=== PATIENT | female | born 1945 | race American Indian/Alaskan Native ===

== ENCOUNTER 2017-02-05 14:11 | Day surgery (SDC) | payer MEDICARE, OTHER ==
[2017-02-05] MEDS ORDERED: NACL 0.9% 1000 ML 1,000 ML ONE (14:19)
[2017-02-05] MEDS ORDERED: NACL BACTERIOSTATIC INFILTRATI ONE (14:23)
--- NOTE | 2017-02-05 14:38 | Anesthesia Consultation ---
Anesthesia Consult and Med Hx Date of service: 02/05/17 - Airway Anesthetic Teeth Evaluation: Good ROM Head & Neck: Adequate Mental/Hyoid Distance: Adequate Mallampati Class: Class II Intubation Access Assessment: Good - Pulmonary Exam CTA: Yes - Pre-Operative Health Status ASA Pre-Surgery Classification: ASA2 Proposed Anesthetic Plan: General - Pulmonary Hx Sleep Apnea: Yes (high risk, not on CPAP) - Cardiovascular System Hx Hypertension: Yes (no meds)
--- NOTE | 2017-02-05 14:38 | Anesthesia Day of Surgery ---
Anesthesia Day of Surgery - Day of Surgery Patient Examined: Yes Patient H&P Reviewed: Yes Patient is NPO: Yes
[2017-02-05] MEDS ORDERED: NORCO 5/325 PO PRN (14:39)
[2017-02-05] MEDS ORDERED: ZOFRAN IV PRN (14:39)
[2017-02-05] MEDS ORDERED: NACL 0.9% 1000 ML 1,000 ML IV SCH (14:55)
[2017-02-05] MEDS ORDERED: LACTATED RINGERS 1,000 ML IV SCH (15:00)
[2017-02-05] MEDS ORDERED: PEPCID IV NR (15:00)
[2017-02-05] MEDS ORDERED: ANCEF/STERILE WATER 2 GM/20 ML IV NR (15:05)
[2017-02-05] MEDS ORDERED: XYLOCAINE MPF 2% ONE (15:22)
[2017-02-05] MEDS ORDERED: DIPRIVAN 10 MG/ML IV ONE (15:22)
[2017-02-05] MEDS ORDERED: DILAUDID ONE (15:24)
[2017-02-05] MEDS ORDERED: ANCEF/STERILE WATER 2 GM/20 ML IV ONE (15:38)
[2017-02-05] MEDS ORDERED: NACL 0.9% IR ONE (15:53)
[2017-02-05] MEDS ORDERED: ZOFRAN ONE (15:58)
--- NOTE | 2017-02-05 17:08 | Operative Report ---
Operative Report Operative Report: Date of procedure: 02/05/2017 Pre-operative diagnosis: Left breast hematoma Post-operative diagnosis: Same Procedure name(s): Evacuation of left breast hematoma Surgeon: Brenda Reza M.D. Anesthesia: Gen. Findings: Left breast hematoma around the 3 o'clock position with evacuation of 200 mL of blood Complications: None Drains: None Disposition: PACU in good condition Indications for operative procedure: This is a 71-year-old lady with recent abnormal left mammogram of suspicious microcalcifications. Patient underwent stereotactic breast biopsy today with significant development of left breast hematoma. Recommendations were for evacuation. Patient was consented for the above procedure. Procedure in Detail: The patient was taken to the operating room and was laid supine. General anesthesia was administered. The left breast was prepped and draped in normal sterile operative fashion. The ultrasound was used to evaluate the area of known hematoma around the 3:00 position of the NAC. A 3:00 periarerola incision was made. The left breast hematoma was evacuated of 200 cc. The area was evaluated further with ultrasound and no further hematoma was noted. The area was then irragated and suction. Hemostasis was noted. The skin was approximated and closed using an interrupted 3-0 Vciryl and running 4-0 Monocryl and skin affix. She was awaken from anesthesia and transported to PACU in good condition.
[2017-02-05] MEDS: DILAUDID IV PRN ×2 (17:20→17:30)
--- NOTE | 2017-02-05 17:31 | Post Anesthesia Evaluation ---
- Post Anesthesia Evaluation Patient Participated: Yes Airway Patent: Yes Stable Respiratory Function: Yes Temp > 96.8F: Yes Pain Manageable: Yes Adequeate Hydration: Yes Anesthesia Complications: No Block Receding Appropriately: Not Applicable
[2017-02-05 17:59] VITALS: BP 124/76
== END 2017-02-05 18:30 | disposition home or self-care (01) ==
LOC: OR 14:11
PROVIDERS: ATTEND Surgery
DX: N64.89 Other specified disorders of breast (principal); I10 Essential (primary) hypertension
CPT/HCPCS: 10140; J1170; J2405; J2704; J7030; J0690

== ENCOUNTER 2017-02-05 14:58 | Outpatient (CLI) | payer MEDICARE | END 2017-02-05 14:59 | disposition home or self-care (01) | LOC: LABHHL 14:58 | PROVIDERS: ATTEND Surgery | DX: R92.0 Mammographic microcalcification found on diagnostic imaging of breast (principal) | CPT/HCPCS: 88305; 88361 ==

== ENCOUNTER 2017-02-13 12:14 | Outpatient (CLI) | payer MEDICARE ==
--- NOTE | 2017-02-19 13:55 | Magnetic Resonance Report ---
BILATERAL BREAST MRI WITHOUT AND WITH CONTRAST: 02/13/17 12:14:00 CLINICAL: Newly diagnosed left breast cancer. 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 ER/IA positive. The patient bled after the procedure and a large hematoma was surgically evacuated on the same day as the stereotactic procedure. COMPARISON:12/24/16 screening mammogram and 01/26/17 and 02/05/17 left mammograms. TECHNIQUE: Axial 1.0-mm T1 without, axial high resolution 2.0-mm T2 and axial 1.0-mm dynamic Vibrant high-resolution postcontrast T1 fat saturation sequences on a 1.5 Yana magnet. The examination was performed with an 8 channel dedicated [place] breast coil. Post processing with CAD and subtraction was performed on an [employer] workstation. 20 cc of Multihance was injected for the contrast portion of the exam. Consent was obtained prior to the administration of the contrast. FINDINGS: Right: Mild background parenchymal enhancement. No mass or suspicious enhancement of the right breast. A benign intramammary lymph node in the upper-outer quadrant 4.4 cm from the nipple measures 5.7 x 5.6 x 2.9 mm. No suspicious right axillary or right internal mammary lymph nodes. Left: The left breast is greatly enlarged compared to the right and there is moderate edema and skin thickening of the breast. A slightly lateral retroareolar seroma measures approximately 3.7 x 2.6 x 5.0 cm. A more posterior and lateral septated seroma measures 3.3 x 3.0 x 1.8 cm. It is centered approximately 10 cm from the nipple. No mass or suspicious enhancement of the left breast. A single relatively central surgical clip is identified and correlates with a remote biopsy. The two clips that were placed at the time of the recent stereotactic biopsy are not identified. No suspicious left axillary or left internal mammary lymph nodes. IMPRESSION: Newly diagnosed DCIS at two sites in the left breast but no MRI findings suspicious for residual or additional tumor. Post-operative seromas of the left breast. Negative right breast. No suspicious lymph nodes. RIGHT BI-RADS 1 -- Negative LEFT BI-RADS 6 -- Known Cancer
== END 2017-02-13 12:15 | disposition home or self-care (01) ==
LOC: SPVIMAG 12:14
PROVIDERS: ATTEND Surgery
DX: C50.912 Malignant neoplasm of unspecified site of left female breast (principal)
CPT/HCPCS: 0159T; A9577; C8908; 77059

== ENCOUNTER 2017-02-17 13:34 | Outpatient (CLI) | payer MEDICARE ==
--- NOTE | 2017-02-17 14:27 | Mammography Report ---
LEFT DIGITAL DIAGNOSTIC MAMMOGRAM : 02/17/17 13:34:00 CLINICAL: Status post recent stereotactic biopsy with development of a large post biopsy hematoma that had to be surgically evacuated. The pathology revealed high-grade DCIS. COMPARISON:02/05/17 FINDINGS: The most recently placed biopsy clips with a stereotactic biopsy are no longer identified. An upper outer clip approximately 7 cm from the nipple correlates with a remote biopsy.The previously described 5 cm hematoma is no longer identified. IMPRESSION: No remaining localizer clips from the recent two site stereotactic biopsy.Minimal residual hematoma/seroma. BI-RADS CATEGORY: 6--Known Cancer ACR BI-RADS MAMMOGRAPHIC CODES: 0 = Needs additional imaging evaluation; 1 = Negative; 2 = Benign; 3 = Probably benign; 4 = Suspicious; 5 = Malignant; 6 = Known biopsy-proven malignancy COMMENT: 1. Dense breast tissue, i.e., adenosis, fibrocystic changes, etc., may obscure an underlying neoplasm. 2. Approximately 10% of cancers are not detected with mammography. 3. A negative mammography report should not delay biopsy if a clinically suspicious mass is present. COMMENT: Patient follow-up letters are generated by our [employer] application.
== END 2017-02-17 13:35 | disposition home or self-care (01) ==
LOC: SPVWC 13:34
PROVIDERS: ATTEND Surgery
DX: C50.912 Malignant neoplasm of unspecified site of left female breast (principal)
CPT/HCPCS: G0206-LT

== ENCOUNTER 2017-04-03 07:05 | Day surgery (SDC) | payer MEDICARE ==
[2017-04-03] MEDS ORDERED: XYLOCAINE 1% 20 mL ONE ×2 (07:33→09:14)
--- NOTE | 2017-04-03 07:37 | Anesthesia Day of Surgery ---
Anesthesia Day of Surgery - Day of Surgery Patient Examined: Yes Patient H&P Reviewed: Yes Patient is NPO: Yes
--- NOTE | 2017-04-03 07:39 | Anesthesia Consultation ---
Anesthesia Consult and Med Hx - Airway Anesthetic Teeth Evaluation: Caps ROM Head & Neck: Adequate Mental/Hyoid Distance: Adequate Mallampati Class: Class II Intubation Access Assessment: Probably Good - Pulmonary Exam CTA: Yes - Cardiac Exam Cardiac Exam: RRR - Pre-Operative Health Status ASA Pre-Surgery Classification: ASA2 Proposed Anesthetic Plan: General - Pulmonary Hx Smoking: No Hx Sleep Apnea: No - Cardiovascular System Hx Hypertension: Yes (DX: 5 YRS AGO, TAKEN OFF MEDS BY PCP 1 YR AGO) - Central Nervous System Hx Psychiatric Problems: No - Other Systems Hx Cancer: No Hx Obesity: Yes (BMI 33.5) - Additional Comments Anesthesia Medical History Comments: NPO after MN. No prior anesthesia problems. No meds for HTN at the present.
[2017-04-03] MEDS ORDERED: NACL BACTERIOSTATIC INFILTRATI ONE (07:49)
[2017-04-03] MEDS ORDERED: PEPCID PO NR (08:00)
[2017-04-03] MEDS ORDERED: VERSED IV NR (08:00)
[2017-04-03] MEDS ORDERED: NACL 0.9% 1000 ML 1,000 ML IV SCH (08:00)
[2017-04-03] MEDS ORDERED: DIPRIVAN 10 MG/ML IV ONE (09:10)
[2017-04-03] MEDS ORDERED: XYLOCAINE MPF 2% ONE (09:10)
[2017-04-03] MEDS ORDERED: DILAUDID ONE (09:10)
[2017-04-03] MEDS ORDERED: MARCAINE 0.25% INFILTRATI ONE ×3 (09:14→11:57)
--- NOTE | 2017-04-03 09:35 | Short Stay Summary ---
Short Stay Documentation Date of service: 04/03/17 - History H&P: obtained from office - Allergies and Medications Current Medications: Allergies NKDA Adverse Reaction (Uncoded 02/05/17 14:48) Unknown Home Medications Medication Instructions Recorded Confirmed Last Taken Type HYDROcodone/APAP 5-325 [Alamo 1 each PO Q6HR PRN #30 tablet 04/03/17 Unknown Rx 5/325] Active Medications Cefazolin Sodium (Ancef/Sterile Water 2 Gm/20 Ml) 2 gm IV PREOP NR Famotidine (Pepcid) 20 mg PO PREOP NR Stop: 04/03/17 15:00 Last Admin: 04/03/17 08:11 Dose: 20 mg Sodium Chloride (Nacl 0.9% 1000 Ml) 1,000 mls @ 75 mls/hr IV DIRECT CROW Midazolam HCl (Versed) 2 mg IV PREOP NR Stop: 04/03/17 23:59 - Brief post op/procedure progress note Date of procedure: 04/03/17 Pre-op diagnosis: Left breast cancer of the upper outer quadrant, DCIS Post-op diagnosis: same Procedure: Complex left needle localization partial mastectomy Anesthesia: GETA Surgeon: IVAN HANDY Estimated blood loss: minimal Pathology: list (left partial mastectomy) Specimen disposition: to lab (left needle localization partial mastectomy) Condition: stable - Disposition Condition at discharge: Good Disposition: DISCHARGED TO HOME OR SELFCARE Short Stay Discharge Plan Activity: other (no heavy lifting) Diet: regular Wound: other (keep incision clean and dry and may shower in 24 hours; no baths, pools or lakes; do not rub or scrub incision) Follow up with: FARZANEH HAAS MD [Primary Care Provider] - 7 Days IVAN HANDY MD [Staff Physician] - 7 Days Prescriptions: HYDROcodone/APAP 5-325 [Alamo 5/325] 1 each PO Q6HR PRN #30 tablet PRN Reason: Pain
[2017-04-03] MEDS ORDERED: ANCEF/STERILE WATER 2 GM/20 ML IV NR (10:00)
[2017-04-03] MEDS ORDERED: DECADRON ONE (10:29)
[2017-04-03] MEDS ORDERED: ZOFRAN ONE (10:29)
[2017-04-03] MEDS ORDERED: NACL 0.9% 1000 ML 1,000 ML ONE (11:57)
[2017-04-03] MEDS ORDERED: XYLOCAINE 1% 20 mL INFILTRATI ONE ×2 (11:57)
[2017-04-03] MEDS ORDERED: WATER FOR IRRIG STERILE IR ONE (12:07)
--- NOTE | 2017-04-03 12:30 | Operative Report ---
Operative Report Operative Report: Date of procedure: 04/03/2017 Preoperative diagnosis: Left breast cancer of the upper outer quadrant, DCIS Postoperative diagnosis: Same Procedure: Left complex needle localization partial mastectomy Surgeon: Brenda Reza M.D. Anesthesia: Gen. Findings: Wires present within radiograph specimen as well as macrocalcifications identified Complications: None Estimated blood loss: 10 mL Disposition: PACU in good condition Indications for operative procedure: This is a 71 year old lady with stage 0 left breast cancer, [id number] of the upper outer quadrant with recommendations for needle localization partial mastectomy. She wished to proceed with the above procedure. Procedure in detail: Radiology place 2 wires that localized area of concern. The patient was taken to the operating room and was laid supine. Gen. anesthesia was administered. Left breast was prepped and draped in the normal sterile operative fashion. The wires were identified. Timeout was performed. A left lateral radial incision was made with a 15 blade knife with dissection taken down to the subcutaneous tissues. First began with removal of the wires from the skin superiorly. Then proceeded with raising of the superior flap taken down posterior to the pectoralis muscle followed by raising of the lateral flap, inferior flap and medial flap. The area of concern was appropriately removed with the aid of the Bovie cautery without incident. Additional cephalad, caudal and medial margins were taken as well and were appropriately marked. Specimen with area of concern was noted on radiograph specimen. Hemostasis was then obtained with the Bovie cautery. Breast cavity was irrigated and suctioned. Hemostasis was noted. Oncoplastic surgery then proceeded with mobilization and approximation of the breast tissue posteriorly to more anteriorly. The tissue was appropriately brought together with interrupted 3-0 Vicryl and the skin was brought together and closed using a running 4-0 Monocryl and skin affix. She tolerated surgery very well and was awakened from anesthesia without any complications and transported to PACU in good condition.
--- NOTE | 2017-04-03 13:05 | Mammography Report ---
Left breast needle localization: The patient presents with a history of DCIS however there is no localizing marker in the targeted calcifications were removed. 2 wires are placed based on prior mammography demonstrating positioning of the calcifications. A lateral approach was utilized and the approximate location of the calcifications were made based on a prior marker and the nipple position. The skin was cleansed and 1% lidocaine used for local anesthesia. Using mammographic grid technique 2 needles were placed from the lateral side bracketing the area of concern. The needle positioning was confirmed with mammography. Wires were then placed with removal of the needles and additional mammographic confirmation of position. No patient complications were encountered.
--- NOTE | 2017-04-03 13:06 | Mammography Report ---
Operative specimen mammogram: A single tissue specimen is submitted that includes the 2 localizing wires and the included breast tissue. Single calcification is present within the tissue. No other information.
[2017-04-03 13:44] VITALS: BP 112/74
--- NOTE | 2017-04-03 13:45 | Post Anesthesia Evaluation ---
- Post Anesthesia Evaluation Patient Participated: Yes Airway Patent: Yes Stable Respiratory Function: Yes Nausea/Vomiting: No Temp > 96.8F: Yes Pain Manageable: Yes Adequeate Hydration: Yes Anesthesia Complications: No Block Receding Appropriately: Not Applicable Patient on Ventilator: No
--- NOTE | 2017-04-03 15:15 | Procedure Note ---
Date of procedure: 04/03/17 Pre-op diagnosis: lt breast lesion Post-op diagnosis: same Procedure: needle loc Findings: n/a Anesthesia: local Surgeon: JEMAL RAND Estimated blood loss: none Pathology: none Condition: stable (surgery)
== END 2017-04-03 07:06 | disposition home or self-care (01) ==
LOC: OR 07:05
PROVIDERS: ATTEND Surgery
DX: D24.2 Benign neoplasm of left breast (principal); N60.92 Unspecified benign mammary dysplasia of left breast; I10 Essential (primary) hypertension; E11.9 Type 2 diabetes mellitus without complications; K21.9 Gastro-esophageal reflux disease without esophagitis; E66.9 Obesity, unspecified; Z68.33 Body mass index [BMI] 33.0-33.9, adult; Z98.890 Other specified postprocedural states; Z79.899 Other long term (current) drug therapy
CPT/HCPCS: 19281; 19301; 76098; 88307; J0690; J1100; J1170; J2250; J2405; J2704; J7030; 88305

== ENCOUNTER 2017-06-24 08:41 | Outpatient (CLI) | payer MEDICARE ==
--- NOTE | 2017-06-24 09:30 | Mammography Report ---
BONE DENSITY STUDY: DEFINITIONS: BMD = Bone Mineral Density T-score = BMD related to mean peak bone mass of young adult (mean expressed in Standard Deviation) Z-score = Age matched BMD expressed in SD World Health Organization (WHO) Diagnostic Criteria Normal T-score > -1 SD Osteopenia T-score between -1 and -2.4 SD Osteoporosis T-score -2.5 SD or below FINDINGS: The weighted average BMD of lumbar spine L1-L4 is 1.191 with a T-score of 0.4. The weighted average BMD of hip is 0.986 with a T-score of -0.3. IMPRESSION: The patient's T-score is diagnostic for normal bone density and low relative risk for fracture. NOTE: BMD is not the only risk factor for fracture; also consider factors such as the patient's age, risk of falling, previous osteoporotic fracture, family history of osteoporotic fractures, current smoker, and low body weight. Drummond's triangle is a region of interest in femur, predominantly of trabecular bone. It is not a true anatomic site, and ISCD does not recommend its use clinically.
== END 2017-06-24 08:42 | disposition home or self-care (01) ==
LOC: SPVWC 08:41
PROVIDERS: ATTEND Internal Medicine Hematology & Oncology
DX: Z13.820 Encounter for screening for osteoporosis (principal); D05.12 Intraductal carcinoma in situ of left breast; I10 Essential (primary) hypertension
CPT/HCPCS: 77080

== ENCOUNTER 2019-07-20 09:14 | Outpatient (CLI) | payer MEDICARE ==
--- NOTE | 2019-07-20 16:12 | Mammography Report ---
BONE DEXA CLINICAL: Postmenopausal and history of breast cancer on anastrozole. COMPARISON: 06/24/2017 TECHNIQUE: 2 site bone DEXA performed on an Hologic scanner. FINDINGS: The average BMD of the lumbar spine L1-L4 is 1.199g/cm squared with a T score of +0.4 and a Z score o f +2.9. This compares to 1.191g/cm squared on the last exam and represents a +0.6 % change from the [ previous baseline]. The average BMD of the left hip is 1.091 g/cm squared with a T score of +0.4and a Z score of +1.6. Th is compares to 0.986 g/cm squared on the last exam and represents a +10.6 % change from the [previous baseline]. IMPRESSION: 1. WHO classification: Normal with average fracture risk based on both spine and left hip measurement s. 2. A modest improvement in spine BMD and a more pronounced improvement in left hip BMD compared to th e last exam. RECOMMENDATION: Clinical correlation and routine screening. Definitions: BMD equal bone mineral density T score = BMD related to peak bone mass of young adult ([place] expressed an standard deviation) Z score = age-matched BMD expressed in SD World health organization (WHO) diagnostic criteria Normal T score greater than equal to 1 standard deviation Osteopenia T score between -1 and -2.4 standard deviation Osteoporosis T score -2.5 standard deviation or below. Note: BMD is not the only risk factor for fracture; also consider factors such as the patient's age, risk of falling, previous osteoporotic fracture, family history of osteoporotic fractures, current sm oker and low body weight. Z scores are not calculated if greater than 80 years of age. Signer Name: Cosme Rogers MD Signed: 07/20/2019 4:07 PM Workstation Name: [id number]
== END 2019-07-20 09:15 | disposition home or self-care (01) ==
LOC: SPVWC 09:14
PROVIDERS: ATTEND Internal Medicine Hematology & Oncology
DX: D05.12 Intraductal carcinoma in situ of left breast (principal); Z79.811 Long term (current) use of aromatase inhibitors; Z78.0 Asymptomatic menopausal state
CPT/HCPCS: 77080

== ENCOUNTER 2021-01-21 08:39 | Outpatient (CLI) | payer MEDICARE ==
--- NOTE | 2021-01-21 10:43 | Mammography Report ---
DIGITAL SCREENING MAMMOGRAM WITH CAD, 01/21/2021 CLINICAL INFORMATION / INDICATION: Routine screening mammography. TECHNIQUE: Digital bilateral 2D mammography was obtained in the craniocaudal and mediolateral obliqu e projections. This examination was interpreted with the benefit of Computer-Aided Detection analysis . COMPARISON: 01/19/2020, 01/06/2019 FINDINGS: Breast Density: There are scattered areas of fibroglandular density. No dominant mass, suspicious calcifications, or architectural distortion in either breast. Postlumpectomy and radiation change noted in the left breast. No significant interval change. IMPRESSION: No mammographic evidence of malignancy. Follow up recommendation: Routine yearly BI-RADS Category 2: Benign. A "normal" or negative report should not discourage follow up or biopsy of a clinically significant f inding. A written summary of these findings will be mailed to the patient. The patient will be entered into a mammography reporting system which will generate a reminder letter for the patient's next appointmen t at the appropriate interval. The [employer] recommends yearly mammograms starting at age 40 and continuing as l nola as a woman is in good health. Breast MRI is recommended for women with an approximate 20-25% or greater lifetime risk of breast cancer, including women with a strong family history of breast or ova ivania cancer or who have been treated for Hodgkin's disease. Signer Name: Shaina Bragg MD Signed: 01/21/2021 10:38 AM Workstation Name: [id number]
== END 2021-01-21 08:40 | disposition home or self-care (01) ==
LOC: SPVWC 08:39
PROVIDERS: ATTEND Surgery
DX: Z12.31 Encounter for screening mammogram for malignant neoplasm of breast (principal); N64.89 Other specified disorders of breast; Z90.12 Acquired absence of left breast and nipple
CPT/HCPCS: 77067

== ENCOUNTER 2021-07-22 09:04 | Outpatient (CLI) | payer MEDICARE ==
--- NOTE | 2021-07-22 10:10 | Mammography Report ---
DEXA BONE DENSITY SCAN INDICATION / CLINICAL INFORMATION: ON AROMATASE THERAPY Z79.811. 75 years Female COMPARISON: DEXA 07/20/2019 LUMBAR SPINE, L1-L4: - Bone mineral density (BMD) = 1.208 g/cm2. - T-score = 0.7 - Z-score = 3.2 Change (%) since most recent prior (if available): Increased 1.3% LEFT HIP, NECK : - Bone mineral density (BMD) = 0.781 g/cm2. - T-score = -1.2 - Z-score = 0.3 Change (%) since most recent prior (if available): Decreased 16.6% IMPRESSION: 1. WHO Classification: Osteopenia. Fracture Risk: Increased. 2. 10-Year Fracture Risk (FRAX) = Major Osteoporotic Not reported.% / Hip: Not reported.% FRAX generally not reported for patients with normal or osteoporotic BMD, in [id number] filemon ents younger than age 50, or in patients undergoing pharmacotherapy BMD Reporting Guidelines (ISCD, 2015) BMD Reporting in Postmenopausal Women and in Men Age 50 and Older - T-scores are preferred. - The WHO densitometric classification is applicable. BMD Reporting in Females Prior to Menopause and in Males Younger Than Age 50 - Z-scores, not T-scores, are preferred. This is particularly important in children. - A Z-score of -2.0 or lower is defined as below the expected range for age, and a Z-score above -2.0 is within the expected range for age. - Osteoporosis cannot be diagnosed in men under age 50 on the basis of BMD alone. - The WHO diagnostic criteria may be applied to women in the menopausal transition. http://www.iscd.org/official-positions/1783-hodr-cjluyklv-positions-adult/ Signer Name: Julius Long MD Signed: 07/22/2021 10:06 AM Workstation Name: [id number]
== END 2021-07-22 09:05 | disposition home or self-care (01) ==
LOC: SPVWC 09:04
PROVIDERS: ATTEND Internal Medicine Hematology & Oncology
DX: D05.12 Intraductal carcinoma in situ of left breast (principal); M85.88 Other specified disorders of bone density and structure, other site; Z79.811 Long term (current) use of aromatase inhibitors
CPT/HCPCS: 77080